=== PATIENT | female | born 1970 | race Hispanic/Latino ===

== ENCOUNTER 2023-06-01 10:48 | Outpatient (CLI) | payer BC | END 2023-06-01 10:49 | disposition home or self-care (01) | LOC: CSHMAMMO 10:48 | PROVIDERS: ATTEND Internal Medicine Rheumatology | DX: M81.0 Age-related osteoporosis without current pathological fracture (principal); M85.89 Other specified disorders of bone density and structure, multiple sites | CPT/HCPCS: 77080 ==

== ENCOUNTER 2024-06-02 14:59 | Outpatient (CLI) | payer BC | END 2024-06-02 15:00 | disposition home or self-care (01) | LOC: CSHMAMMO 14:59 | PROVIDERS: ATTEND Physician Assistant | DX: M81.0 Age-related osteoporosis without current pathological fracture (principal); M85.89 Other specified disorders of bone density and structure, multiple sites | CPT/HCPCS: 77080 ==

== ENCOUNTER 2024-06-03 12:01 | Outpatient (CLI) | payer BC | END 2024-06-03 12:02 | disposition home or self-care (01) | LOC: CSHMAMMO 12:01 | PROVIDERS: ATTEND Family Medicine | DX: Z12.31 Encounter for screening mammogram for malignant neoplasm of breast (principal) | CPT/HCPCS: 77063; 77067 ==